=== PATIENT | female | born 2005 ===

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

== ENCOUNTER 2024-01-26 17:00 | Outpatient (REF) | payer MEDICAID, SELFPAY ==
[2024-01-27 05:40] LABS: CT PCR NOT DETECTED (Not Detect.); NG PCR NOT DETECTED (Not Detect.)
== END 2024-01-26 17:01 | disposition home or self-care (01) ==
LOC: HO.HHCLNP 17:00
PROVIDERS: Visit Provider Advanced Practice Midwife
DX: Z11.3 Encounter for screening for infections with a predominantly sexual mode of transmission (principal)
CPT/HCPCS: 87491; 87591

== ENCOUNTER 2024-02-07 19:32 | Emergency (ER) | payer MEDICAID, SELFPAY ==
--- NOTE | ~2024-02-07 | XR_ITS ---
EXAMINATION: XR CHEST CLINICAL INFORMATION: Shortness of breath, cough COMPARISON: None available. TECHNIQUE: 2 views of the chest were obtained. FINDINGS: No significant abnormality is noted involving the heart, lungs, mediastinum, bony thorax or soft tissues. XR/XR chest 2V IMPRESSION: Unremarkable examination. Electronically signed by: Anderson Olmos DO 02/07/2024 09:40 PM EDT RP
[2024-02-07 19:49] VITALS: BP 127/82; PULSE 115; RESP 16; TEMP 37; O2SAT 97; BMI 23.6
--- NOTE | 2024-02-07 19:51 | ED_ITS ---
HPI - General Adult General Chief complaint: Upper Respiratory Symptoms Stated complaint: coughing/fever/body aches/asthma Time Seen by Provider: 02/07/24 21:09 Source: patient Mode of arrival: ambulatory Limitations: no limitations History of Present Illness ED Provider: Dr. Shabana Ordonez HPI narrative: Patient comes to the emergency room complaining of generalized malaise, body aches, asthma exacerbation. Patient states that she has enough inhalers at home. Related Data Previous Rx's ?Medication ?Instructions ?Recorded cefuroxime axetil 250 mg tablet 250 mg PO BID 5 days #10 tabs 10/11/23 ferrous sulfate 325 mg (65 mg 325 mg PO DAILY #30 tabs 10/11/23 iron) tablet ferrous sulfate 325 mg (65 mg 325 mg PO DAILY #90 tabs 10/11/23 iron) tablet potassium chloride 10 mEq 10 meq PO DAILY #10 caps 10/11/23 capsule,extended release prednisone 50 mg tablet 50 mg PO DAILY #4 tabs 02/07/24 Allergies Allergy/AdvReac Type Severity Reaction Status Date / Time ceftriaxone Allergy Rash Verified 02/07/24 19:51 Review of Systems 2 Review of Systems: Constitutional : No Weight loss, No Fever, No Chills, No Night Sweats, complaining of fatigue and generalized malaise ENT/Mouth : No Hearing loss, No Ear Pain, No Nasal Congestion, No Sinus Pain, No Hoarseness, No sore throat, No Rhinorrhea, No Swallowing Difficulty Eyes: No Eye Pain, No Swelling, No Redness, No Foreign Body, No Discharge, No Vision Changes Cardiovascular : No Chest Pain, No SOB, No Dyspnea on Exertion, No Orthopnea, No Edema, No Palpitations Respiratory : Complaining of asthma,/wheezing, cough No Smoke Exposure, No Dyspnea Gastrointestinal : No Nausea, No Vomiting, No Diarrhea, No Constipation, complaining of abdominal discomfort with no significant abdominal Pain, No Hematochezia, No Melena Genitourinary : no irregular bleeding, No Dysuria, No Urinary Frequency, No Hematuria, No Urinary Incontinence, No Urgency, No Flank Pain, No Urinary Flow Changes, No Hesitancy Musculoskeletal : No joint pain, No Myalgias, No Joint Swelling Skin : No Skin Lesions, No rash Neuro : No Weakness, No Numbness, No Paresthesias, No Loss of Consciousness, No Dizziness, No Headache Psych : No Anxiety/Panic, No Depression, No SI/HI/AH/VH, No Social Issues, Heme/Lymph: No Bruising, No Bleeding,No Lymphadenopathy Endocrine : No Polyuria, No Polydipsia, No Temperature Intolerance [facility], [facility] Past Medical History Medical History (Updated 02/07/24 @ 22:30 by Shabana Ordonez MD) Asthma Social History Social History Advance Directives: No Advance Directives Information Provided: No Do you have a plan to hurt others: No Plan Physical Exam ED Vital Signs: Vital Signs - 24 hr 02/07/24 19:49 02/07/24 20:00 02/07/24 20:48 Temperature 98.6 F 97.9 F Pulse Rate 115 H 141 H 110 H Respiratory Rate 16 22 H 18 Blood Pressure 127/82 118/86 Pulse Oximetry 97 100 Oxygen Delivery Method Room Air Room Air 02/07/24 22:00 Temperature 97.7 F Pulse Rate 141 H Respiratory Rate 18 Blood Pressure 100/69 Pulse Oximetry 100 Oxygen Delivery Method Room Air BMI result Body Mass Index 23.6 Const Other: Appearance: Alert. Oriented X3. No acute distress. Eyes: Pupils equal, round and reactive to light. ENT: Pharynx normal. Neck: Normal inspection. Neck supple. No lymph nodes noted. No crepitus CVS: Normal heart rate and rhythm. Pulses normal. Normal S1 and S2 Respiratory: No respiratory distress. Breath sounds normal. No Wheezing. No rales Abdomen: Soft and nontender. No rigidity. No distention. Skin: Skin warm and dry. Normal skin color. Normal skin turgor. Extremities: No lower extremity edema. No Lacerations. No Rash Neuro: Oriented X 3. No motor deficit. No sensory deficit. Moving all extremities. No slurred speech. CN 2 through 12 grossly intact Psych: calm, cooperative, normal affect Course Course Course Narrative: RME performed by Jeanette Cunningham PA-C. Patient is a 18 year old assigned female at presenting to the emergency department with a dry cough, feeling generally unwell, and worsening asthma. Patient states over the last few days she has had a dry cough, worsening asthma, and feeling generally unwell. Detailed physical exam and review of systems are deferred to the process mechanic. Imaging and swabs ordered. Patient placed back in the waiting room pending room availability and results. Medications Administered Discontinued Medications Generic Name Dose Route Start Last Admin Trade Name Mike PRN Reason Stop Dose Admin Albuterol Sulfate 5 mg/ 0 mg 02/07/24 20:43 02/07/24 20:48 Albuterol/Ipratropium 3 ml INHALE 02/07/24 20:44 1 each ONCE ONE Administration Medical Decision Making Medical Decision Making [facility] Narrative: A nebulization treatment was ordered from triage. At this time but I see the patient, patient no longer wheezing, well-appearing. -patient tested negative for COVID RSV and flu My interpretation of chest x-ray: Negative for pneumonia. -patient states that she has enough inhalers at home, she will need a prescription for prednisone. Differential Diagnosis Differential Diagnoses: The differential diagnosis associated with the presentation includes (As above) Lab Data [facility] Lab Attestation statement: I reviewed the patient's lab results. Labs: Lab Results 02/07/24 Range/Units 20:01 Influenza Type A (PCR) NEGATIVE (Negative) Influenza Type B (PCR) NEGATIVE (Negative) RSV RNA Qual (PCR) NEGATIVE (Negative) SARS-CoV-2 RNA (RT-PCR) NEGATIVE (Negative) S. pyogenes GrpA TAMARA Negative (Negative) Independent Interpretation I performed an independent interpretation of an: Plain X-Ray Radiology Impression Discussion of test interpretation with radiology: I have reviewed the radiologist's reading. Radiologist Impression: No significant abnormality is noted involving the heart, lungs, mediastinum, bony thorax or soft tissues. XR/XR chest 2V IMPRESSION: Unremarkable examination. Discharge Plan Discharge Clinical Impression: Viral illness, Asthma Patient Disposition: Home, Self-Care Instructions: Asthma (ED), Viral Syndrome (ED) Additional Instructions: Please follow-up with your primary care physician tomorrow. If you have any worsening or new symptoms, please return to the emergency room or call 911 Prescriptions: New prednisone 50 mg tablet 50 mg PO DAILY Qty: 4 0RF No Action cefuroxime axetil 250 mg tablet 250 mg PO BID 5 Days Qty: 10 0RF ferrous sulfate 325 mg (65 mg iron) tablet 325 mg PO DAILY Qty: 90 0RF potassium chloride 10 mEq capsule, extended release 10 meq PO DAILY Qty: 10 0RF ferrous sulfate 325 mg (65 mg iron) tablet 325 mg PO DAILY Qty: 30 0RF Print Language: Kosovan
[2024-02-07 20:00] VITALS: BP 118/86; PULSE 141; RESP 22; TEMP 36.6; O2SAT 100
[2024-02-07 20:18] LABS: IDNOW Serial# 6674DD1D; Strep A Nucleic Acid Negative (Negative)
[2024-02-07 20:47] LABS: Influenza A PCR NEGATIVE (Negative); Influenza B PCR NEGATIVE (Negative); Resp Syncy Virus RNA Qual PCR NEGATIVE (Negative); SARS COV2 PCR INHOUSE NEGATIVE (Negative)
[2024-02-07 20:48] VITALS: PULSE 110; RESP 18; O2SAT 100
[2024-02-07] MEDS: Albuterol Sulfate 5 MG, Albuterol/Iprat 2.5/0.5MG 3 ML 3 ML INHALE (20:48)
[2024-02-07 22:00] VITALS: BP 100/69; PULSE 141; RESP 18; TEMP 36.5; O2SAT 100
[2024-02-07] MEDS: predniSONE 10 MG TABLET 50 MG PO (22:33)
[2024-02-07 22:44] VITALS: BP 100/69; PULSE 141; RESP 18; TEMP 36.5; O2SAT 100
== END 2024-02-07 22:45 | disposition home or self-care (01) ==
PROVIDERS: Physician Assistant Medical; Emergency Provider Emergency Medicine; PCP Pediatrics
DX: B34.9 Viral infection, unspecified (principal); J45.909 Unspecified asthma, uncomplicated; Z03.818 Encounter for observation for suspected exposure to other biological agents ruled out; R53.81 Other malaise
CPT/HCPCS: 0241U; 71046; 87651; 94640; 99284

== ENCOUNTER 2024-02-12 23:08 | Emergency (ER) | payer MEDICAID, SELFPAY ==
--- NOTE | ~2024-02-12 | XR_ITS ---
EXAMINATION: XR CHEST CLINICAL INFORMATION: Chest pain COMPARISON: 02/07/2024 TECHNIQUE: Frontal view of the chest was obtained. FINDINGS: Lung volumes are symmetric. There is suggestion of subtle patchy opacity at the left lung base. No evidence of pneumothorax, pleural effusion, or pulmonary edema. The cardiomediastinal contour is unremarkable. No acute osseous findings are seen. XR/XR chest 1V IMPRESSION: Suggestion of subtle patchy left basilar opacity raising concern for mild developing consolidation in the proper clinical setting. Electronically signed by: Lucho Tanner MD 02/13/2024 12:52 AM EDT
--- NOTE | 2024-02-12 23:12 | ECG_ITS ---
Test Reason : palpations Blood Pressure : / mmHG Vent. Rate : 107 BPM Atrial Rate : 107 BPM P-R Int : 130 ms QRS Dur : 076 ms QT Int : 338 ms P-R-T Axes : 059 054 038 degrees QTc Int : 451 ms Sinus tachycardia Otherwise normal ECG When compared with ECG of 10-OCT-2023 23:44, Heart rate has increased Referred By: Generic ED Physician Electronically Signed By:CONNIE HYDE
[2024-02-12 23:29] LABS: Basophils Absolute Auto 0.1 X10*3/uL (0.0-0.2); Basophils Percent Auto 0.7 % (0-2); Eosinophils Absolute Auto 0.4 X10*3/uL (0.0-0.4); Eosinophils Percent Auto 3.3 % (0-4); Hematocrit 35.5 % (37.0-47.0); Hemoglobin 11.5 g/dl (12.0-16.0); Imm Gran Abs Auto 0.03 X10*3/uL (0.00-0.03); Imm Gran Pct Auto 0.3 % (0.0-0.4); Lymphocytes Percent Auto 55.7 % (20-40); MANUAL DIFF FLAG SCAN; Mean Corpuscular HGB Conc 32.4 g/dl (31.0-35.0); Mean Corpuscular Hemoglobin 23.1 pg (27.0-33.0); Mean Corpuscular Volume 71.4 fL (80.0-98.0); Mean Platelet Volume 8.8 fL (9.4-12.3); Monocytes Absolute Auto 0.9 X10*3/uL (0.1-1.2); Neutrophils Absolute Auto 3.5 x10*3/uL (2.0-8.3); Platelet Count 369 X10*3/uL (160-400); Red Blood Count 4.97 X10*6/uL (4.20-5.50); SCAN SMEAR FLAG 1; White Blood Count 10.8 X10*3/uL (4.8-10.8)
[2024-02-12 23:30] VITALS: BP 110/73; PULSE 116; RESP 18; TEMP 37; O2SAT 98; BMI 24.2
[2024-02-12 23:45] LABS: Alanine Aminotransferase 63 U/L (0-31); Albumin Level 2.8 g/dL (3.5-5.0); Alkaline Phosphatase 44 U/L (39-117); Anion Gap 10 (12-20); Aspartate Amino Transferase 29 U/L (5-31); Bilirubin Total 0.4 mg/dL (0.0-1.0); Blood Urea Nitrogen 20 mg/dL (9-16); Calcium 8.2 mg/dL (8.4-10.2); Carbon Dioxide 23 mmol/L (22-29); Chloride 110 mmol/L (96-108); Creatinine Clr Calc Pharmacy 97.6; Estimated Glomerular Filt Rate > 60; Glucose Random 94 mg/dL (60-115); Potassium 3.2 mmol/L (3.3-5.1); Sodium 140 mmol/L (135-145)
[2024-02-12 23:49] LABS: SLIDE REVIEW VERIFIED
[2024-02-13 00:01] LABS: Troponin-I High Sensitivity < 2.7 ng/L (<3.5-17.0)
--- NOTE | 2024-02-13 01:10 | ED_ITS ---
HPI - Chest Pain General Chief Complaint: Chest Pain Stated Complaint: heart palp/chest pain Time Seen by Provider: 02/13/24 01:00 Source: patient and family Mode of arrival: ambulatory Limitations: no limitations History of Present Illness ED Provider: Dr. Shabana Ordonez HPI narrative: Patient comes to the emergency room complaining of chest pain, palpitations, cough. Patient states that yesterday was the last dose of prednisone that she took from her previous visit, patient has been using her inhaler. Related Data Previous Rx's ?Medication ?Instructions ?Recorded cefuroxime axetil 250 mg tablet 250 mg PO BID 5 days #10 tabs 10/11/23 ferrous sulfate 325 mg (65 mg 325 mg PO DAILY #30 tabs 10/11/23 iron) tablet ferrous sulfate 325 mg (65 mg 325 mg PO DAILY #90 tabs 10/11/23 iron) tablet potassium chloride 10 mEq 10 meq PO DAILY #10 caps 10/11/23 capsule,extended release prednisone 50 mg tablet 50 mg PO DAILY #4 tabs 02/07/24 azithromycin 250 mg tablet 250 mg PO DAILY 4 days #4 tabs 02/13/24 benzonatate 100 mg capsule 100 mg PO TID PRN cough #12 caps 02/13/24 potassium chloride 20 mEq 20 meq PO DAILY #14 tabs 02/13/24 tablet,extended release Allergies Allergy/AdvReac Type Severity Reaction Status Date / Time ceftriaxone Allergy Rash Verified 02/12/24 23:38 Review of Systems 2 Review of Systems: Constitutional : No Weight loss, No Fever, No Chills, No Night Sweats, No Fatigue, No Malaise ENT/Mouth : No Hearing loss, No Ear Pain, No Nasal Congestion, No Sinus Pain, No Hoarseness, No sore throat, No Rhinorrhea, No Swallowing Difficulty Eyes: No Eye Pain, No Swelling, No Redness, No Foreign Body, No Discharge, No Vision Changes Cardiovascular : No Chest Pain, No SOB, No Dyspnea on Exertion, No Orthopnea, No Edema, No Palpitations Respiratory : Ongoing cough, wheezing Gastrointestinal : No Nausea, No Vomiting, No Diarrhea, No Constipation, No abdominal Pain, No Hematochezia, No Melena Genitourinary : no irregular bleeding, No Dysuria, No Urinary Frequency, No Hematuria, No Urinary Incontinence, No Urgency, No Flank Pain, No Urinary Flow Changes, No Hesitancy Musculoskeletal : No joint pain, No Myalgias, No Joint Swelling Skin : No Skin Lesions, No rash Neuro : No Weakness, No Numbness, No Paresthesias, No Loss of Consciousness, No Dizziness, No Headache Psych : No Anxiety/Panic, No Depression, No SI/HI/AH/VH, No Social Issues, Heme/Lymph: No Bruising, No Bleeding,No Lymphadenopathy Endocrine : No Polyuria, No Polydipsia, No Temperature Intolerance [facility] Past Medical History Medical History Asthma Social History Social History Advance Directives: No Advance Directives Information Provided: No Do you have a plan to hurt others: No Plan Physical Exam 2 Vital Signs: Vital Signs: Last Vital Signs Temp 98.6 F 02/12/24 23:30 Pulse 116 H 02/12/24 23:30 Resp 18 02/12/24 23:30 BP 110/73 02/12/24 23:30 Pulse Ox 98 02/12/24 23:30 O2 Del Method Room Air 02/12/24 23:30 BMI result Body Mass Index 24.2 Const: Other: Appearance: Alert. Oriented X3. No acute distress. Eyes: Pupils equal, round and reactive to light. ENT: Pharynx normal. Neck: Normal inspection. Neck supple. No lymph nodes noted. No crepitus CVS: Normal heart rate and rhythm. Pulses normal. Normal S1 and S2 Respiratory: No respiratory distress. Breath sounds normal. No Wheezing. No rales Abdomen: Soft and nontender. No rigidity. No distention. Skin: Skin warm and dry. Normal skin color. Normal skin turgor. Extremities: No lower extremity edema. No Lacerations. No Rash Neuro: Oriented X 3. No motor deficit. No sensory deficit. Moving all extremities. No slurred speech. CN 2 through 12 grossly intact Psych: calm, cooperative, normal affect Medical Decision Making Medical Decision Making [facility] Narrative: The patient's mother reports that the patient has been using significantly more the inhaler. Patient's mother has tried to convince the patient to use her nebulizer but patient refuses, she likes using her inhaler more than prescribed. Patient used her inhaler prior to arrival, likely explaining the tachycardia. -at this time, patient is not wheezing, is actively coughing. -chest x-ray shows possible developing patchy infiltrate. Patient will be treated as pneumonia. Patient has no signs of high hypotension, oxygen saturation 98% on room air. -patient was given the 1st dose of antibiotics here in the emergency room and Miguel Kovacs -also, it was noted that patient's potassium is a bit low, chronic for the patient, patient was given p.o. potassium here in the ED. -it was noted that patient's hemoglobin improved to 11.5, patient has history of blood transfusions. -patient was ambulated in the ED, oxygen saturation 92% during ambulation and then improved back to 98% at rest. Auscultation after walking: No wheezing at all Differential Diagnosis Differential Diagnoses: The differential diagnosis associated with the presentation includes (Asthma, viral infection, pneumonia) Lab Data [facility] Lab Attestation statement: I reviewed the patient's lab results. 02/12/24 23:23 02/12/24 23:23 Labs: Lab Results 02/12/24 Range/Units 23:23 WBC 10.8 (4.8-10.8) X10*3/uL RBC 4.97 D (4.20-5.50) X10*6/uL Hgb 11.5 L D (12.0-16.0) g/dl Hct 35.5 L D (37.0-47.0) % MCV 71.4 L (80.0-98.0) fL MCH 23.1 L (27.0-33.0) pg MCHC 32.4 (31.0-35.0) g/dl RDW 16.0 (11.0-16.0) % Plt Count 369 (160-400) X10*3/uL MPV 8.8 L (9.4-12.3) fL Immature Gran % (Auto) 0.3 (0.0-0.4) % Neut % (Auto) 32.0 L (45-73) % Lymph % (Auto) 55.7 H (20-40) % [place] % (Auto) 8.0 (2-11) % Eos % (Auto) 3.3 (0-4) % Baso % (Auto) 0.7 (0-2) % Lymph # (Auto) 6.0 H (1.2-4.9) X10*3/uL [place] # (Auto) 0.9 (0.1-1.2) X10*3/uL Eos # (Auto) 0.4 (0.0-0.4) X10*3/uL Baso # (Auto) 0.1 (0.0-0.2) X10*3/uL Abs Immat Gran (auto) 0.03 (0.00-0.03) X10*3/uL Absolute Neuts (auto) 3.5 (2.0-8.3) x10*3/uL Absolute Nucleated RBC 0.000 (0.0-0.012) X10*3/uL Nucleated RBC % (auto) 0.0 (0.0-0.2) /100WBC Smear Tech's Comments VERIFIED Sodium 140 (135-145) mmol/L Potassium 3.2 L (3.3-5.1) mmol/L Chloride 110 H (96-108) mmol/L Carbon Dioxide 23 (22-29) mmol/L Anion Gap 10 L (12-20) BUN 20 H (9-16) mg/dL Creatinine 0.76 (0.5-1.4) mg/dL Estim Creat Clear Calc 97.6 Estimated GFR > 60 Random Glucose 94 (60-115) mg/dL Calcium 8.2 L D (8.4-10.2) mg/dL Total Bilirubin 0.4 (0.0-1.0) mg/dL AST 29 (5-31) U/L ALT 63 H (0-31) U/L Alkaline Phosphatase 44 (39-117) U/L Troponin I High Sens < 2.7 (<3.5-17.0) ng/L Total Protein 5.0 L (6.5-8.0) g/dL Albumin 2.8 L (3.5-5.0) g/dL Independent Interpretation I performed an independent interpretation of an: Plain X-Ray Interpretation: Suggestion of subtle patchy left basilar opacity raising concern for mild developing consolidation in the proper clinical setting. Radiology Impression Discussion of test interpretation with radiology: I have reviewed the radiologist's reading. Independent Historian Clinical information obtained from an independent historian. History obtained from or confirmed by: Parent Critical Care Time Critical Care Time Critical Care Time: Yes Total Critical Care Time: 35 Attestation: I have personally provided critical care time. Time includes review of lab data, radiology results, discussion with consultants, and monitoring for potential decompensation. Intervention performed as documented. Discharge Plan Discharge Clinical Impression: Pneumonia Patient Disposition: Home, Self-Care Instructions: Pneumonia (ED) Additional Instructions: Please follow-up with your primary care physician tomorrow. If you have any worsening or new symptoms, please return to the emergency room or call 911 Prescriptions: New azithromycin 250 mg tablet 250 mg PO DAILY 4 Days Qty: 4 0RF Rx Instructions: start on day 2 of therapy benzonatate 100 mg capsule 100 mg PO TID PRN (Reason: cough) Qty: 12 0RF potassium chloride 20 mEq tablet extended release 20 meq PO DAILY Qty: 14 0RF No Action prednisone 50 mg tablet 50 mg PO DAILY Qty: 4 0RF cefuroxime axetil 250 mg tablet 250 mg PO BID 5 Days Qty: 10 0RF ferrous sulfate 325 mg (65 mg iron) tablet 325 mg PO DAILY Qty: 90 0RF potassium chloride 10 mEq capsule, extended release 10 meq PO DAILY Qty: 10 0RF ferrous sulfate 325 mg (65 mg iron) tablet 325 mg PO DAILY Qty: 30 0RF Print Language: Setswana
[2024-02-13] MEDS: Azithromycin 500 MG TABLET PO (01:12)
[2024-02-13] MEDS: Potassium Chloride Packet 20 MEQ PACKET 40 MEQ PO (01:12)
[2024-02-13 01:31] VITALS: BP 114/75; PULSE 103; RESP 16; TEMP 37; O2SAT 98
[2024-02-13] MEDS: Benzonatate 100 MG CAPSULE PO (01:36)
[2024-02-13 01:40] VITALS: BP 114/75; PULSE 103; RESP 16; TEMP 37; O2SAT 98
== END 2024-02-13 01:40 | disposition home or self-care (01) ==
PROVIDERS: Emergency Provider Emergency Medicine
DX: J18.9 Pneumonia, unspecified organism (principal); R07.9 Chest pain, unspecified; Z79.899 Other long term (current) drug therapy
CPT/HCPCS: 36415; 71045; 80053; 84484; 85025; 93005; 99283; 99284

== ENCOUNTER 2024-04-06 11:18 | Outpatient (REF) | payer MEDICAID, SELFPAY ==
--- NOTE | ~2024-04-06 | XR_ITS ---
EXAMINATION: XR CHEST CLINICAL INFORMATION: Order states cough for 2 months, has one chest x-ray on February 13 with subtle patchy left basilar opacity treated with Zithromax, rule out worsening infiltrate. COMPARISON: 02/12/2024, 02/07/2024. TECHNIQUE: 2 views of the chest were obtained. FINDINGS: There is no gross pneumothorax. Heart size is normal. No significant pleural effusion. Previously identified subtle patchy opacity at the left lung base is less conspicuous. No new focal consolidation. XR/XR chest 2V IMPRESSION: Previously identified subtle patchy opacity at the left lung base is less conspicuous. No new focal consolidation. This study was presented today 04/06/2024 for interpretation. Stat results provided at this time as requested by referring provider. Electronically signed by: Kay Rodriguez MD 04/06/2024 01:00 PM HELIO LAKHANI
[2024-04-06 13:39] LABS: Basophils Absolute Auto 0.1 X10*3/uL (0.0-0.2); Basophils Percent Auto 1.1 % (0-2); Eosinophils Absolute Auto 0.2 X10*3/uL (0.0-0.4); Eosinophils Percent Auto 1.5 % (0-4); Hematocrit 32.4 % (37.0-47.0); Hemoglobin 9.9 g/dl (12.0-16.0); Imm Gran Abs Auto 0.01 X10*3/uL (0.00-0.03); Imm Gran Pct Auto 0.1 % (0.0-0.4); Lymphocytes Percent Auto 80.9 % (20-40); MANUAL DIFF FLAG SCAN; Mean Corpuscular HGB Conc 30.6 g/dl (31.0-35.0); Mean Corpuscular Hemoglobin 22.4 pg (27.0-33.0); Mean Corpuscular Volume 73.5 fL (80.0-98.0); Mean Platelet Volume 9.7 fL (9.4-12.3); Monocytes Absolute Auto 0.6 X10*3/uL (0.1-1.2); Monocytes Percent Auto 5.9 % (2-11); Neutrophils Absolute Auto 1.2 x10*3/uL (2.0-8.3); Neutrophils Percent Auto 10.5 % (45-73); Platelet Count 266 X10*3/uL (160-400); Red Blood Count 4.41 X10*6/uL (4.20-5.50); Red Cell Distribution Width 18.5 % (11.0-16.0); SCAN SMEAR FLAG 1; White Blood Count 10.9 X10*3/uL (4.8-10.8)
[2024-04-06 13:40] LABS: Lymphocytes Absolute Auto 8.8 X10*3/uL (1.2-4.9)
[2024-04-06 14:12] LABS: SLIDE REVIEW VERIFIED
[2024-04-06 14:17] LABS: Alanine Aminotransferase 26 U/L (0-31); Albumin Level 3.9 g/dL (3.5-5.0); Alkaline Phosphatase 67 U/L (39-117); Anion Gap 10 (12-20); Aspartate Amino Transferase 30 U/L (5-31); Bilirubin Total 0.5 mg/dL (0.0-1.0); Blood Urea Nitrogen 16 mg/dL (9-16); Calcium 9.6 mg/dL (8.4-10.2); Carbon Dioxide 24 mmol/L (22-29); Chloride 108 mmol/L (96-108); Estimated Glomerular Filt Rate > 60; Glucose Random 74 mg/dL (60-115); Iron 13 mcg/dL (30-160); Percent Iron Saturation 3 % (15-50); Potassium 3.2 mmol/L (3.3-5.1); Sodium 139 mmol/L (135-145); Total Iron Binding Capacity 394 mcg/dL (228-428); Total Protein 7.3 g/dL (6.5-8.0); Unsaturated Iron Binding 381 ug/dL
[2024-04-07 13:35] LABS: Adenovirus PCR Not Detected (Not Detect.); Bordetella parapertussis PCR Not Detected (Not Detect.); Bordetella pertussis PCR Not Detected (Not Detect.); Chlamydia pneumoniae PCR Not Detected (Not Detect.); Coronavirus 229E PCR Not Detected (Not Detect.); Coronavirus HKU1 PCR Not Detected (Not Detect.); Coronavirus NL63 PCR Not Detected (Not Detect.); Coronavirus OC43 PCR Not Detected (Not Detect.); Human metapneumovirus PCR Not Detected (Not Detect.); Influenza A PCR Not Detected (Not Detect.); Influenza B PCR Not Detected (Not Detect.); Mycoplasma pneumoniae PCR Not Detected (Not Detect.); Parainfluenza 1 PCR Not Detected (Not Detect.); Parainfluenza 2 PCR Not Detected (Not Detect.); Parainfluenza 3 PCR Not Detected (Not Detect.); Parainfluenza 4 PCR Not Detected (Not Detect.); RSV PCR Not Detected (Not Detect.); Rhino/Enterovirus PCR Not Detected (Not Detect.)
[2024-04-07 13:49] LABS: SARS-CoV-2 PCR Not Detected (Not Detect.)
[2024-04-11 18:29] LABS: Pertussis Testing <1 IU/mL
== END 2024-04-06 11:19 | disposition home or self-care (01) ==
LOC: HO.HHCL 11:18
PROVIDERS: Visit Provider Pediatrics
DX: R05.3 Chronic cough (principal)
CPT/HCPCS: 36415; 71046; 80053; 83540; 85025; 86615; 87633